=== PATIENT | female | born 1955 | race Caucasian/White ===

== ENCOUNTER 2018-02-20 18:31 | Observation (INO) ==
--- NOTE | 2018-02-20 20:38 | Internal Med History&Physical ---
<Rivka Santiago Ainsley - Last Filed: 02/21/18 01:51> Date of Encounter: 02/20/18 Internal Medicine - H&P: HPI History of present illness: Ms. Roberts is a 63 year old female Internal Medicine - H&P: Meds Albuterol Neb [Proventil Neb] 2.5 mg IH TID 02/20/18 [History] Albuterol Sulfate [Albuterol Inhaler] 2 puff IH Q4HR 02/20/18 [History] Budesonide/Formoterol 160/4.5 [Symbicort 160/4.5] 2 puff IH BIDR 02/20/18 [History] Cyclobenzaprine [Flexeril] 5 - 10 mg PO HS 02/20/18 [History] HYDROcodone/Acet 7.5/325 mg [[place] 7.5-325 mg] 1 tab PO Q6H PRN 02/20/18 [History] Meloxicam [Mobic] 15 mg PO DAILY 02/20/18 [History] Metoprolol [Lopressor] 75 mg PO BID 02/20/18 [History] Simvastatin [Zocor] 20 mg PO HS 02/20/18 [History] amLODIPine [Norvasc] 5 mg PO DAILY 02/20/18 [History] Allergy/AdvReac Type Severity Reaction Status Date / Time aspirin [ASA] AdvReac Gastrointestinal Verified 02/20/18 15:59 Upset montelukast [From Singulair] AdvReac Gastrointestinal Verified 02/20/18 15:59 Upset ANABOLIC STEROIDS Allergy See Uncoded 02/20/18 15:59 Comments All Systems PM: A 10-system review of systems was performed and is negative for pertinent findings except as documented above in the HPI. - Constitutional Vitals: Temp Pulse Resp BP Pulse Ox 98.0 F 76 16 118/83 97 02/20/18 23:09 02/20/18 23:09 02/20/18 23:09 02/20/18 23:09 02/20/18 23:09 Internal Med - H&P Results - Labs CBC & Chem 7: 02/20/18 21:51 02/20/18 21:51 Labs: Short CBC 02/20/18 Range/Units 21:51 WBC 8.8 (4.3-11.1) K/mcL Hgb 13.4 (11.5-15.4) g/dL Hct 40.9 (35.3-44.9) % Plt Count 220 (140-400) K/mcL Neutrophils # 6.4 (1.6-8.9) K/mcL BMP 02/20/18 21:51 Sodium 139 Potassium 3.9 Chloride 106 Carbon Dioxide 23 BUN 18 Creatinine 0.93 Glucose 134 H Calcium 9.3 Cardiac Enzymes 02/20/18 Range/Units 21:51 Troponin I < 0.03 (< 0.04) ng/mL - Assessment and plan (1) Stroke-like symptoms Current Visit: No Status: Acute (2) COPD (chronic obstructive pulmonary disease) Current Visit: Yes Status: Acute (3) Hypertension Current Visit: Yes Status: Acute (4) Chest pain Current Visit: Yes Status: Acute (5) DVT prophylaxis Current Visit: Yes Status: Acute - Time Spent With Patient Total time spent is greater than 50% in coordination of care (as documented) at patient's floor/unit and/or counseling patient: - Attending Attestation Patient seen and examined. Chart reviewed. Case discussed with resident. Ainsley olivo with assessment and plan. Please see history of present illness below for further details. Patient is 63-year-old female with past medical history significant for stroke and brain aneurysm which was treated at [facility], who was transferred from [place] due to concern for stroke like symptoms with an acute presentation of a right facial numbness and right-sided facial droop which appear to have resolved. There however appears to be mild decreased prominence of the right nasal labial fold when compared to the left. Initial CT CT scan and laboratory workup at [place] was negative. Patient did not receive aspirin at [place] due to a reported adverse reaction to aspirin which she st ates causes her an upset stomach. We will continue with neuro checks, obtain MRI, carotid duplex and echo. Patient also endorses atypical chest pain which she describes as substernal, pressure-like, radiating to her right neck which began yesterday while she was sitting down and lasted for several minutes. Patient currently chest pain-free. Review of EKG shows approximately 1 mm depressions in lateral leads. Her troponins thus far have been negative. We have no previous EKG to compare to. Patient reports she has had a left heart catheter approximately 30 years ago which was negative. She does have a previous significant smoking history; currently uses E cigarettes. We will continue to trend troponin. Consider cardiology consult. <Lyubov Faust N - Last Filed: 02/21/18 04:30> Date of Encounter: 02/21/18 Time of Encounter: 20:38 Internal Medicine - H&P: HPI Chief complaint: Stroke-like symptoms and chest pain History of present illness: Ms. Roberts is a 63 year old female with a history of arthritis, asthma, COPD, CVA, GERD, HTN, aneurysm, and migraine headaches. She arrived at [facility] as a transfer from [facility]. Patient reports a 2-day history of intermittent "squeezing" substernal chest pain with radiation to the right side of her jaw. These are associated with nausea and shortness of breath. She was at home when the pain first started, and rates it as 5-6/10 in intensity. She estimates that the initial episode lasted a few minutes, after which the pain subsided. She denies aggravating or alleviating factors. She does have a history of GERD; however, she states that this pain is different than that of reflux. She does have a strong family history of cardiac problems, with two sibling with a history of [place] and a son who recently underwent C with stenting. She denies any prior cardiac incidents and has never undergone cardiac workup. She is a former smoker; however, she switched to an electronic cigarette a few years ago. EKG performed at the outside facility demonstrated ST depression; however, patient did have a normal troponin. Patient reports that she has had right arm numbness and tingling for a few months, which initially began in her 4th and 5th digits. She states that this sensation is constant, and has progressed to include her forearm up to the elbow. Patient also reports subjective right-sided weakness and states that a provider at the outside facility noted right-sided facial droop. She states that this does not feel like the stroke she experienced several years ago. Head CT performed at [place] demonstrated no acute intracranial abnormality. ROS is significant for occasional palpitations that occur without any specific provocation. She also notes that she feels she has been tiring more easily recently. She complains of swelling in her feet, which has been present for some time, and states that she has recently noticed bilateral hand swelling as well. Patient was seen and examined at the bedside. Her was present, and contributed to collection of patient's history and recent symptoms, stating that she has had some memory issues since her aneurysm. She denies any chest pain or discomfort, and states that she does not have any acute complaints at this time Past Med Surg Social Fam HX - Past Medical History Source: patient, obtained from family Medical history: arthritis, asthma, COPD, CVA, GERD, hypertension, migraine Additional medical history: Aneurysm, intracranial bleed Psychiatric history: no psych history - Past Surgical History Additional surgical history: BILAT EYE SURG, CRANIOTOMY - Social History Smoking Status: Current every day smoker (Electronic cigarette) Smokeless Tobacco Status: No Alcohol use: none Drug use: none Current living situation: Home, With Family Activity Level: Independent ambulation - Family History Mother Living Status: Cause of : Lung cancer Hx Family Cardiac Disorders: Yes ([place]) Hx Family Cancer: Yes (Lung cancer) Hx Family Endocrine Disorder: Yes (Diabetes) Father Living Status: Cause of : Lung cancer Hx Family Cardiac Disorders: Yes (OH) Brother Hx Family Cardiac Disorders: Yes ([place], CAD) Sister Hx Family Cardiac Disorders: Yes (OH) Son Living Status: Still Living Hx Family Cardiac Disorders: Yes ([place], CAD) Hx Family Endocrine Disorder: Yes (Diabetes mellitus) All Systems PM: A 10-system review of systems was performed and is negative for pertinent findings except as documented above in the HPI. - Constitutional Vitals: Temp Pulse Resp BP Pulse Ox 98.0 F 80 16 158/90 96 02/20/18 20:28 02/20/18 20:28 02/20/18 20:28 02/20/18 20:28 02/20/18 20:28 Exam: GENERAL: Pleasant female resting in bed comfortably. She does not appear to be in acute distress. HEENT: Atraumatic and normocephalic. No apparent facial droop present. NECK: Soft and nontender. No JVD present. CARDIOVASCULAR: Regular rate and rhythm. S1 and S2 present. No murmurs, gallops, or rubs. RESPIRATORY: CTA bilaterally. Chest rises and falls symmetrically with respira tions. No accessory muscle use. GASTROINTESTINAL: Active bowel sounds present x 4 quadrants. Abdomen is soft and nontender. EXTREMITIES: No clubbing or cyanosis present. Minimal bilateral lower extremity edema. SKIN: Warm, dry, and intact. NEUROLOGIC: Patient expresses decreased sensation on the right side of her face in the distibution of V2 and V3. 5/5 muscle strength in bilateral upper and lower extremities, with exception of knee flexion/extension, which is 4/5 on the right. Patient reports subjective right-sided weakness during muscle strength testing. Internal Med - H&P Results - Labs CBC & Chem 7: 02/20/18 21:51 02/20/18 21:51 - Assessment and plan (1) Stroke-like symptoms Current Visit: No Status: Acute Assessment and plan: Patient has had persisistent right-sided upper extremity tingling for several months, and presents with new-onset chest pain with radiation to her jaw. She does have some right-sided neurologic deficits. Concern for repeat stroke in spite of normal head CT. Plan for continued stroke evaluation as follows: - Neuro checks Q4H - Telemetry monitoring - Duplex carotid doppler imaging - Echocardiogram - Noncontrast brain MRI (2) Chest pain Current Visit: Yes Status: Acute Assessment and plan: Patient is not currently experiencing any chest discomfort; however, she has had multiple episodes of atypical chest pain over the last two days and has a strong family history of cardiac issues. - Repeat EKG - Trend troponins x3 - Consider cardiology consult if symptoms recur or if patient has positive troponin Qualifiers: Chest pain type: other chest pain Qualified Code(s): R07.89 - Other chest pain; R07.8 - Other chest pain (3) Hypertension Current Visit: Yes Status: Acute Assessment and plan: Patient has a history of hypertension. Her home medications include amlodipine 5mg and metoprolol 75mg BID. Initial BP was 158/90. - Continue home dose of metoprolol - Hold amlodipine due to concern for CVA in order to allow for permissive hypertension Qualifiers: Hypertension type: essential hypertension Qualified Code(s): I10 - Essential (primary) hypertension (4) COPD (chronic obstructive pulmonary disease) Current Visit: Yes Status: Acute Assessment and plan: Patient reports feeling short of breath while experiencing episodes of chest pain; however, she denies any worsening SOB overall. Plan to continue home COPD regimen: - Albuterol nebulizer TID - Albuterol inhaler PRN - Symbicort BID - Nocturnal oxygen supplementation Qualifiers: COPD type: unspecified COPD Qualified Code(s): J44.9 - Chronic obstructive pulmonary disease, unspecified (5) DVT prophylaxis Current Visit: Yes Status: Acute Assessment and plan: - Heparin 5000units SQ Q8H - Time Spent With Patient Total time spent is greater than 50% in coordination of care (as documented) at patient's floor/unit and/or counseling patient:
[2018-02-20] MEDS ORDERED: Naloxone 0.4 MG/ML INJ IVP PRN (21:26)
[2018-02-20] MEDS: Albuterol 2.5 MG/3 ML NEBULIZER IH SCH (21:55)
[2018-02-20] MEDS: Budesonide/Formoterol 160/4.5 1 PUFF INH IH SCH (21:55)
[2018-02-20 22:09] LABS: Basophils % 0.3 %; Eosinophils # 0.1 K/mcL (0.0-0.6); Hematocrit 40.9 % (35.3-44.9); Hemoglobin 13.4 g/dL (11.5-15.4); Immature Granulocytes % 0.3 % (0-4); Lymphocytes # 1.6 K/mcL (0.6-4.6); Lymphocytes % 17.8 %; Mean Corpuscular HGB Conc 32.8 g/dL (31.6-35.5); Mean Corpuscular Hemoglobin 30.1 pg (28.0-33.3); Mean Corpuscular Volume 91.9 fL (83.0-100.0); Mean Platelet Volume 10.7 fL (9.4-12.4); Monocytes # 0.7 K/mcL (0.0-1.3); Monocytes % 7.4 %; Neutrophils # 6.4 K/mcL (1.6-8.9); Platelet Count 220 K/mcL (140-400); Red Blood Count 4.45 M/mcL (3.82-4.97); Red Cell Distribution Width 12.4 % (11.5-14.5); Segmented Neutrophils % 73.2 %
[2018-02-20 22:16] LABS: Prothrombin Time 11.2 Seconds (9.4-12.1)
[2018-02-20 22:26] LABS: BUN/Creatinine Ratio 19 (6-26); Blood Urea Nitrogen 18 mg/dL (8-23); Calcium 9.3 mg/dL (8.6-10.3); Carbon Dioxide 23 mEq/L (23-29); Chloride 106 mEq/L (98-107); Chol/HDL Ratio 2.7 (0-4.9); Cholesterol 162 mg/dL (< 200); Glucose 134 mg/dL (70-105); HDL Cholesterol 59 mg/dL (40-59); LDL Cholesterol,Calculated 77 mg/dL (0-99); Osmolality,Calculated 292 (280-300); Potassium 3.9 mEq/L (3.5-5.1); Sodium 139 mEq/L (136-145); Triglycerides 129 mg/dL (< 150); eGFR For Non-African Americans > 60 (> 60)
[2018-02-20] MEDS: Aspirin 81 MG TAB.CHEW PO SCH (23:00)
[2018-02-21] MEDS ORDERED: Aspirin 81 MG TAB.CHEW PO ONE (01:10)
[2018-02-21] MEDS: Albuterol 2.5 MG/3 ML NEBULIZER IH SCH ×3 (08:11→21:53)
[2018-02-21] MEDS: Budesonide/Formoterol 160/4.5 1 PUFF INH IH SCH ×2 (08:12→21:53)
[2018-02-21] MEDS: Aspirin 81 MG TAB.CHEW PO SCH (08:51)
[2018-02-21] MEDS ORDERED: amLODIPine 5 MG TABLET PO SCH (09:00)
[2018-02-21] MEDS ORDERED: *HR* LORazepam 2 MG/ML VIAL IVP ONE (13:14)
--- NOTE | 2018-02-21 17:29 | Internal Med Progress Note ---
Hospitalist Progress Note - Encounter Date of Encounter: 02/21/18 Time of Encounter: 15:15 - Subjective Interval History: Beverley Reid is a 63-year-old female who was admitted for right-sided facial droop with weakness from the emergency room today. She gives history that she was seen in her primary care provider's office and was sent to [facility] for a MRI where she states that she was then diverted to [facility] . States when she was seen in [place] she was advised that there MRI machine was not functioning and that she should come here to [facility] to be evaluated through the emergency room. She states that initially she had right-sided facial weakness, right sided facial, and right arm heaviness and weakness with loss of tactile perception with touch. Reports that she was unable to left the right arm, and unable to grasp anything with the left hand. Past history is positive for CVA 12 years ago aneurysm has been clipped 12 years ago hypertension and COPD. Her is at the bedside and she is interviewed at the bedside she states that she occasionally has some fleeting chest pain that is only lasting a few seconds it is dull in nature nonradiating. Some of the abnormal EKG was obtained from the [place] report showed ST depression. She states she continues to have numbness in her fingertips however most of her neurological symptoms have resolved including facial droop on the right side. Carotid Dopplers and MRI of the head remained pending at the time of this - Exam Vitals: Temp Pulse Resp BP Pulse Ox 98.2 F 50 18 144/85 94 02/21/18 16:46 02/21/18 16:46 02/21/18 16:46 02/21/18 16:46 02/21/18 16:46 Exam: stable - Assessment and Plan (1) Stroke-like symptoms Current Visit: No Status: Acute Assessment and Plan: continues with paraesthesia of the finger tips of right hand. Facial droop has resolved, strength 3/5 upper and lower ext. Negative for necrological deficit, PEALA, EOMI , negative Romberg, DRTS upper and lower ext 2+ Gasp equal , AAO x 4. Will await MRI of head and carotid doppler results (2) COPD (chronic obstructive pulmonary disease) Current Visit: Yes Status: Chronic Assessment and Plan: Lung CTA will continue with medications (3) Hypertension Current Visit: Yes Status: Acute Assessment and Plan: mild hypertension , however stable will continue to monitor . Will continue with beta luli (4) Chest pain Current Visit: Yes Status: Acute Assessment and Plan: episodic fleeting, lasting 1-2 seconds, dull, mid-epigastric , non-radiating. Denies shortness of breath, dizziness, N/V, or heart burn . Echo reviewed with preseved LVEF of 55-60 % with mold left ventricular diastolic dysfunction. Will continue to monitor , continue on telemetry . (5) DVT prophylaxis Current Visit: Yes Status: Acute Assessment and Plan: per protochol will start on Lovnox per protochol based on weight q12 hr . May ambualte in hallway prn - Summary of Assessment and Plan Summary of Assessment and Plan: Ms. Reid is a 63-year-old female who was admitted for right sided weakness facial droop since onset was seen initially in her primary care provider's office was referred to [facility] as outpatient for an MRI was unable to obtain at this was advised to go to the hospital where she was told that the MRI machine was down and then eventually landed in the emergency room here where she was admitted. Today she says most of her symptoms have not resolved including the facial droop and she has some residual paresthesias of the right fingertips with some diminished tactile sensation. On physical exam she is negative for any neurological deficit. Carotid Doppler and MRI of the head is pending. She is in no acute distress we will continue to monitor her and give her medications as ordered. - Time Spent with Patient Total time spent is greater than 50% in coordination of care (as documented) at patient's floor/unit and/or counseling patient: less than 15 minutes Plan of Care Discussed with: patient Internal Medicine: Result - Labs CBC & Chem 7: 02/20/18 21:51 02/20/18 21:51 Labs: Short CBC 02/20/18 Range/Units 21:51 WBC 8.8 (4.3-11.1) K/mcL Hgb 13.4 (11.5-15.4) g/dL Hct 40.9 (35.3-44.9) % Plt Count 220 (140-400) K/mcL Neutrophils # 6.4 (1.6-8.9) K/mcL BMP 02/20/18 21:51 Sodium 139 Potassium 3.9 Chloride 106 Carbon Dioxide 23 BUN 18 Creatinine 0.93 Glucose 134 H Calcium 9.3 Cardiac Enzymes 02/20/18 02/21/18 02/21/18 Range/Units 21:51 03:31 09:07 Troponin I < 0.03 < 0.03 < 0.03 (< 0.04) ng/mL - ABG Interpretation ABG results: PT/INR, D-dimer PT 11.2 Seconds (9.4-12.1) 02/20/18 21:51 - Impressions Impressions Echocardiogram 02/21/18 21:30 Impressions: Technically adequate exam. LVEF 55-60%. Mild left ventricular diastolic dysfunction. Normal right ventricular structure and function. No evidence of PFO with agitated saline contrast. No significant valvular dysfunction. Consult Discharge Plan - Plan Referrals: NONE,PCP [Primary Care Provider] - (2) COPD (chronic obstructive pulmonary disease) Qualifiers: COPD type: unspecified COPD Qualified Code(s): J44.9 - Chronic obstructive pulmonary disease, unspecified (3) Hypertension Qualifiers: Hypertension type: essential hypertension Qualified Code(s): I10 - Essential (primary) hypertension (4) Chest pain Qualifiers: Chest pain type: other chest pain Qualified Code(s): R07.89 - Other chest pain; R07.8 - Other chest pain
[2018-02-21] MEDS ORDERED: *HR* LORazepam 2 MG/ML VIAL ONE (17:52)
[2018-02-21] MEDS: *HR* Enoxaparin 100 MG/ML SYRINGE SQ SCH (17:55)
[2018-02-22] MEDS: *HR* Enoxaparin 100 MG/ML SYRINGE SQ SCH (06:17)
[2018-02-22 07:19] VITALS: BP 106/67
[2018-02-22] MEDS: Budesonide/Formoterol 160/4.5 1 PUFF INH IH SCH (07:50)
[2018-02-22] MEDS: Albuterol 2.5 MG/3 ML NEBULIZER IH SCH (07:50)
[2018-02-22] MEDS: Aspirin 81 MG TAB.CHEW PO SCH (08:34)
--- NOTE | 2018-02-22 10:44 | Discharge Summary ---
- NOTES TO OUTPATIENT PROVIDER Notes to Outpatient Provider: Outpatient follow-up with neurology as with a 1-2 weeks of hospital discharge Orders not resulted at time of discharge: Pending orders 02/20/18 21:26 ECG 12 lead ECG [ECG] Routine Date of Encounter: 02/22/18 Time of Encounter: 10:41 - Discharge Diagnosis (1) Stroke-like symptoms Priority: Primary Status: Resolved (2) COPD (chronic obstructive pulmonary disease) Priority: Secondary Status: Chronic Qualifiers: COPD type: unspecified COPD Qualified Code(s): J44.9 - Chronic obstructive pulmonary disease, unspecified (3) Hypertension Priority: Secondary Status: Chronic Qualifiers: Hypertension type: essential hypertension Qualified Code(s): I10 - Essent ial (primary) hypertension (4) Chest pain Priority: Secondary Status: Resolved Qualifiers: Chest pain type: other chest pain Qualified Code(s): R07.89 - Other chest pain; R07.8 - Other chest pain (5) DVT prophylaxis Priority: Secondary Status: Chronic Hospital course: Ms. Roberts is a 63 year old female past medical history significant for asthma, COPD, CVA, GERD, HTN, aneurysm, and migraine headaches. Patient was transferred to this facility due to the complaint of chest pain, and numbness and tingling. Patient admitted to the hospital to rule out CVA. MRI of the brain, head and neck CTA: Were negative for any acute abnormality. Carotid duplex: The right carotid arteries are normal throughout, The left carotid arteries have minimal plaque throughout. Patient chest pains resoled. Patient still complains of mild numbness and tingling in the right upper extremity. Denies slurred speech or focal weakness. Patient is hemodynamically stable to be discharged home. recommended to follow- up with a neurologist outpatient within 1-2 weeks of hospital discharge. - Time Spent with Patient Total time spent providing and/or coordinating discharge services: Greater than 30 minutes (34) - Discharge Medications Home Medications: Albuterol Neb [Proventil Neb] 2.5 mg IH TID 02/20/18 [History] Albuterol Sulfate [Albuterol Inhaler] 2 puff IH Q4HR PRN 02/20/18 [History] Budesonide/Formoterol 160/4.5 [Symbicort 160/4.5] 2 puff IH BIDR 02/20/18 [History] Cyclobenzaprine [Flexeril] 5 - 10 mg PO HS 02/20/18 [History] HYDROcodone/Acet 7.5/325 mg [[place] 7.5-325 mg] 1 tab PO Q6H PRN 02/20/18 [History] Meloxicam [Mobic] 15 mg PO DAILY 02/20/18 [History] Metoprolol [Lopressor] 75 mg PO BID 02/20/18 [History] Simvastatin [Zocor] 20 mg PO HS 02/20/18 [History] amLODIPine [Norvasc] 5 mg PO DAILY 02/20/18 [History] Aspirin [Adult Aspirin] 81 mg PO DAILY 02/21/18 [History] Allergies/Adverse Reactions: Allergy/AdvReac Type Severity Reaction Status Date / Time aspirin [ASA] AdvReac Gastrointestinal Verified 02/21/18 20:40 Upset montelukast [From Singulair] AdvReac Gastrointestinal Verified 02/20/18 15:59 Upset ANABOLIC STEROIDS Allergy See Uncoded 02/20/18 15:59 Comments Date of admission: 02/20/18 19:49 Primary care physician: PCP NONE - Constitutional Vitals: Temp Pulse Resp BP Pulse Ox 97.5 F L 68 18 106/67 94 02/22/18 07:18 02/22/18 07:18 02/22/18 07:52 02/22/18 07:52 02/22/18 07:52 Exam: General: Patient is alert, oriented, no acute distress, speaks in full sentences Head: atraumatic, normocephalic, Eye: normal appearance, PERRL, no scleral icterus, no conjunctival injection ENT: mucous membranes moist, normal external ear exam Respiratory: Clear to auscultation bilaterally, no wheezing, rales or crackles. Cardiovascular: RRR, normal s1 and s2, No rubs, gallops, or murmors. Abdomen: Obese, Bowel sounds present normoactive x-4 quadrants. Abdomen is soft, nondistended. No guarding or rebound. Musculoskeletal: Spontaneously moving all extremities. no edema, no calf tenderness Skin: warm, dry, intact. Neuro: Alert and oriented x4. Sensation light touch intact. Cranial nerves 2- 12 is intact. Not aphasic, gait is steady, rapid hand movements intact, [id number] intact, Psych: Patient's affect is normal - Patient Status Disposition: Home, Self-Care Condition: Good Functional capacity at discharge: independent ambulation Overall status at discharge: patient is back to baseline - Discharge Instructions Follow Up With: NONE,PCP [Primary Care Provider] - - Diet and Activity Activity: resume usual activities as tolerated Diet: advance to your usual diet
--- NOTE | 2018-02-23 22:21 | Electrocardiograph Report ---
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
--- NOTE | 2018-02-23 22:41 | Electrocardiograph Report ---
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
== END 2018-02-22 11:05 | disposition home or self-care (01) ==
LOC: 3BNU
PROVIDERS: ADMIT Internal Medicine Nephrology; ATTEND Internal Medicine Nephrology